=== PATIENT | female | born 1965 | race Caucasian/White ===

== ENCOUNTER → 2017-11-22 | Outpatient (CLI) | payer OTHER ==
[2017-11-22 13:18] LABS: Free Thyroxine 1.08 ng/dL (0.70-1.60); Thyroid Stimulating Hormone 0.555 uIU/mL (0.360-4.800); Triiodothyronine, Free 2.73 pg/mL (2.18-3.98)
== END | disposition home or self-care (01) ==
LOC: LAB 09:48
PROVIDERS: Hospitalist
DX: E06.3 Autoimmune thyroiditis (principal)
CPT/HCPCS: 84439; 84443; 84481

== ENCOUNTER 2019-06-05 07:14 | Day surgery (SDC) | payer OTHER | END 2019-06-05 23:34 | disposition home or self-care (01) | LOC: MOI US 07:14 | DX: C50.412 Malignant neoplasm of upper-outer quadrant of left female breast (principal); Z17.0 Estrogen receptor positive status [ER+] | CPT/HCPCS: 19083; 77065; 88305; 88341; 88342; 88360; A4648 ==

== ENCOUNTER → 2022-01-03 | Outpatient (CLI) | payer BC ==
[~2022-01-03] MED LIST: EUTHYROX88 MCG PO; VITAMIN D325 MC3
[2022-01-04 17:33] LABS: Influenza A Negative (NEGATIVE); Influenza B Negative (NEGATIVE)
== END | disposition home or self-care (01) ==
LOC: LAB SHORT 16:00
PROVIDERS: Family Medicine
DX: R50.9 Fever, unspecified (principal); R05.9 Cough, unspecified
CPT/HCPCS: 87804

== ENCOUNTER 2022-07-03 08:51 | Day surgery (SDC) | payer BC ==
[~2022-07-03] VITALS: Ht 167.6 cm; Wt 87.6 kg
== END 2022-07-03 11:49 | disposition home or self-care (01) ==
LOC: ORSCSDS 08:51
PROVIDERS: Student in an Organized Health Care Education/Training Program
PROC: 0DBK8ZX Excision of Ascending Colon, Via Natural or Artificial Opening Endoscopic, Diagnostic (ICD-10-PCS; principal; 2022-07-03 10:15)
PROC: 0DBN8ZX Excision of Sigmoid Colon, Via Natural or Artificial Opening Endoscopic, Diagnostic (ICD-10-PCS; principal; 2022-07-03 10:15)
PROC: 0DBM8ZX Excision of Descending Colon, Via Natural or Artificial Opening Endoscopic, Diagnostic (ICD-10-PCS; principal; 2022-07-03 10:15)
PROC: 0DBH8ZX Excision of Cecum, Via Natural or Artificial Opening Endoscopic, Diagnostic (ICD-10-PCS; principal; 2022-07-03 10:15)
PROC: 0DBL8ZX Excision of Transverse Colon, Via Natural or Artificial Opening Endoscopic, Diagnostic (ICD-10-PCS; principal; 2022-07-03 10:15)
DX: Z12.11 Encounter for screening for malignant neoplasm of colon (principal); D12.3 Benign neoplasm of transverse colon; D12.2 Benign neoplasm of ascending colon; D12.0 Benign neoplasm of cecum; D12.4 Benign neoplasm of descending colon; D12.5 Benign neoplasm of sigmoid colon; E66.9 Obesity, unspecified; E03.9 Hypothyroidism, unspecified; Z68.32 Body mass index [BMI] 32.0-32.9, adult; Z79.899 Other long term (current) drug therapy
CPT/HCPCS: 88305; J2704; J7120

== ENCOUNTER 2022-11-14 07:42 | Day surgery (SDC) | payer BC ==
[~2022-11-14] VITALS: Ht 165.1 cm; Wt 92.1 kg
[2022-11-14] MEDS ORDERED: ASPIR 8181 M1 PO (08:36)
[2022-11-14] MEDS ORDERED: VITAMIN D310 MC4 PO (08:37)
--- NOTE | 2022-11-14 10:01 | NUR ---
11/14/22 1001 Chato Hand 5MLS OF LIDOCAINE 2% WITH EPI 1:100,000 MIXED 1:100,000 WITH 5ML NACL TO CREATE 10MLS OF LLIDOCAINE 1% WITH EPI 1:200,000. 3MLS USED FOR CASE.
== END 2022-11-14 12:56 | disposition home or self-care (01) ==
LOC: ORSCSDS 07:42
PROVIDERS: Otolaryngology
PROC: 0GTG0ZZ Resection of Left Thyroid Gland Lobe, Open Approach (ICD-10-PCS; principal; 2022-11-14 09:00)
PROC: 0GTH0ZZ Resection of Right Thyroid Gland Lobe, Open Approach (ICD-10-PCS; principal; 2022-11-14 09:00)
DX: E04.2 Nontoxic multinodular goiter (principal); C73 Malignant neoplasm of thyroid gland; Z85.3 Personal history of malignant neoplasm of breast; Z79.899 Other long term (current) drug therapy; E66.9 Obesity, unspecified; Z68.35 Body mass index [BMI] 35.0-35.9, adult
CPT/HCPCS: 88307; 88311; J2250; J2704; J3010; J7120

== ENCOUNTER 2025-03-30 06:10 | Day surgery (SDC) | payer OTHER ==
[~2025-03-30] VITALS: Ht 165.1 cm; Wt 90.2 kg
[~2025-03-30 06:10] MED LIST changes: +ASPIR 8181 M1 PO; +VITAMIN D310 MC4 PO
[2025-03-30] MEDS ORDERED: CeFAZolin Sodium 2,000 MG VIAL ONE (06:28)
[2025-03-30] MEDS ORDERED: Tranexamic Acid 100 ML IV ONE (06:29)
[2025-03-30] MEDS ORDERED: FentaNYL Citrate 50 MCG/ML 2 ML Injection ONE (07:05)
[2025-03-30] MEDS ORDERED: Midazolam HCl 1MG / ML 2ML Vial ONE (07:05)
[2025-03-30] MEDS ORDERED: Phenylephrine HCl 100 MCG/ML-NS 10MLSYR (1MG/10ML) ONE (07:08)
--- NOTE | 2025-03-30 07:39 | NUR ---
03/30/25 0739 Elizabeth Hannah TIME OUT PERFORMED AT BEDSIDE WITH DR LAUREANO AT 0721 PER LOU MONROY STARTED AT 0724 NERVE BLOCK STARTED: 724 NERVE BLOCK ENDED: 725 SPO2, HR, BP, 3 LEAD MONITORED THROUGHOUT. PT TOLERATED PROCEDURE WELL.
[2025-03-30] MEDS ORDERED: Ondansetron HCl 2 MG / ML 2ML Vial ONE ×2 (08:17→10:07)
[2025-03-30] MEDS ORDERED: Dexamethasone Sod Phos 10 MG/ML 1ML VIAL ONE ×2 (08:17→10:07)
[2025-03-30] MEDS ORDERED: Sugammadex Sodium 200 MG/2ML SDV (100 MG/ML) ONE (08:26)
[2025-03-30] MEDS ORDERED: Bupivacaine 0.5% HCl 5 MG/ML 30MLVIAL ONE (08:49)
[2025-03-30 09:48] VITALS: BP 136/77
[2025-03-30] MEDS ORDERED: ePHEDrine Sulfate 50 MG/ML 1ML Injection ONE (09:50)
--- NOTE | 2025-03-30 10:07 | NUR ---
03/30/25 Thelma Fiore DRY COUGH LE EDEMA PT A&O, PLEASANT, AMBULATORY TOTAL IN 1L MILD EDEMA TO OPERATIVE EXTREMITY, NUMB, (+) RADIAL PULSE
== END 2025-03-30 10:04 | disposition home or self-care (01) ==
LOC: ORSCSDS 06:10
PROVIDERS: Orthopaedic Surgery Sports Medicine
PROC: 0RBJ4ZZ Excision of Right Shoulder Joint, Percutaneous Endoscopic Approach (ICD-10-PCS; principal; 2025-03-30 07:30)
DX: M75.01 Adhesive capsulitis of right shoulder (principal); E03.9 Hypothyroidism, unspecified; Z79.899 Other long term (current) drug therapy
CPT/HCPCS: J0165; J0690; J1100; J2250; J2371; J2405; J2704; J3010; J7120